=== PATIENT | female | born 1995 | race American Indian/Alaskan Native ===

== ENCOUNTER 2017-02-10 04:57 | Emergency (ER) | payer BC ==
--- NOTE | 2017-02-10 07:00 | Emergency Department Report ---
ED Female HPI - General Chief complaint: Urogenital-Female Stated complaint: VAGINAL PAIN Time Seen by Provider: 02/10/17 06:56 Source: patient Mode of arrival: Ambulatory Limitations: No Limitations - History of Present Illness Initial comments: 21-year-old femalesignificant past medical history presents with complaint of tampon lodged in vagina. Menstrual period started on 11/08/16 patient states she inserted a tampon approximately 5-1/2 hours ago and attempted to remove it 2 hours ago and could not find tampon string states she accidentally shoved a deeper into her vagina while in the shower. Patient denies fevers chills abdominal pain other than slight mild cramping. Denies dysuria or hematuria does state that she has some menstrual bleeding occurring at this time. Denies any significant pain, denies any fevers or chills. Fully lucid awake alert and oriented not in acute distress and nontoxic appearing MD Complaint: vaginal bleeding Onset/Timin -: hour(s), During the night Are you Now?: No Last Menstrual Period: 02/08/17 EDC: 11/15/17 Associated Symptoms: vaginal bleeding - Related Data Sexually active: Yes Allergies Allergy/AdvReac Type Severity Reaction Status Date / Time No Known Allergies Allergy Unverified 02/10/17 05:56 ED Review of Systems ROS: Stated complaint: VAGINAL PAIN Other details as noted in HPI Constitutional: denies: chills, fever Eyes: denies: eye pain, eye discharge, vision change ENT: denies: ear pain, throat pain Respiratory: denies: cough, shortness of breath, wheezing Cardiovascular: denies: chest pain, palpitations Endocrine: no symptoms reported Gastrointestinal: denies: abdominal pain, nausea, diarrhea Genitourinary: denies: urgency, dysuria, discharge Musculoskeletal: denies: back pain, joint swelling, arthralgia Skin: denies: rash, lesions Neurological: denies: headache, weakness, paresthesias Psychiatric: denies: anxiety, depression Hematological/Lymphatic: denies: easy bleeding, easy bruising ED Past Medical Hx - Past Medical History Previous Medical History?: No - Surgical History Past Surgical History?: No - Social History Smoking Status: Never Smoker Substance Use Type: Alcohol ED Physical Exam - General Limitations: No Limitations General appearance: alert, in no apparent distress - Head Head exam: Present: atraumatic, normocephalic - Eye Eye exam: Present: normal appearance - ENT ENT exam: Present: mucous membranes moist - Neck Neck exam: Present: normal inspection - Respiratory Respiratory exam: Present: normal lung sounds bilaterally. Absent: respiratory distress - Cardiovascular Cardiovascular Exam: Present: regular rate, normal rhythm. Absent: systolic murmur, diastolic murmur, rubs, gallop - GI/Abdominal GI/Abdominal exam: Present: soft, normal bowel sounds - External exam: Present: normal external exam Speculum exam: Present: vaginal discharge, foreign body (tampon lodged in fornix adjacent to cervix ) - Extremities Exam Extremities exam: Present: normal inspection - Back Exam Back exam: Present: normal inspection - Neurological Exam Neurological exam: Present: alert, oriented X3, CN II-XII intact, normal gait - Psychiatric Psychiatric exam: Present: normal affect, normal mood - Skin Skin exam: Present: warm, dry, intact, normal color. Absent: rash ED Course Vital Signs 02/10/17 05:56 Temperature 98.4 F Pulse Rate 107 H Respiratory 18 Rate Blood Pressure 112/77 O2 Sat by Pulse 98 Oximetry ED Medical Decision Making - Medical Decision Making A/P: Vaginal foreign body removal, tampon removal 1-tampon fully removed from the vaginal vault. No evidence of vaginal laceration, scant amount of vaginal bleeding 2-I advised patient to use sanitary napkin/pads for now during menstrual cycle 3-I advised patient that if she develops fevers chills abdominal pain any abnormal rash or any bowel vaginal discharge or purulence from vagina or foul discharge from vagina to return to the ED immediately for reevaluation. Patient stated she understood these instructions. I explained to patient that the risk of having a tampon in for an extended period of time is pelvic infection and toxic shock syndrome however as patient stated that this scenario only developed in the last few hours it is highly unlikely that the patient has oral developed toxic shock syndrome from having tampon in for less than 5 hours 4-follow-up with [facility] Critical care attestation.: If time is entered above; I have spent that time in minutes in the direct care of this critically ill patient, excluding procedure time. ED Disposition Clinical Impression: Foreign body in vagina Qualifiers: Encounter type: initial encounter Qualified Code(s): T19.2XXA - Foreign body in vulva and vagina, initial encounter Disposition: TO HOME OR SELFCARE Is pt being admited?: No Does the pt Need Aspirin: No Condition: Stable Instructions: Vaginal Foreign Body (ED) Referrals: [facility] [Provider Group] - 3-5 Days [facility] [Provider Group] - 3-5 Days Time of Disposition: 07:01
[2017-02-10 07:29] VITALS: BP 123/68
== END 2017-02-10 07:29 | disposition home or self-care (01) ==
LOC: ED 04:57
DX: T19.2XXA Foreign body in vulva and vagina, initial encounter (principal); X58.XXXA Exposure to other specified factors, initial encounter; Y93.9 Activity, unspecified; Y99.9 Unspecified external cause status; Y92.89 Other specified places as the place of occurrence of the external cause
CPT/HCPCS: 99282

== ENCOUNTER 2017-07-03 08:03 | Emergency (ER) | payer BC ==
[2017-07-03 08:11] VITALS: BP 131/78
--- NOTE | 2017-07-03 08:36 | Emergency Department Report ---
ED Female HPI - General Chief complaint: Urogenital-Female Stated complaint: YEAST INFECTION TX W/ AMOX Time Seen by Provider: 07/03/17 08:26 Source: patient Mode of arrival: Ambulatory Limitations: No Limitations - History of Present Illness Initial comments: This is a 22 y.o. female that presents with white itchy discharge for 1 week. Patient reports going to dentist 2 weeks ago and prescribed amoxicillin for toothache. She took the last dose last week. Reports having thick white discharge, dysuria, suprapubic pain, and vaginal itching for 1 week. States she can't take monistat because she doesn't like discharge for 7 days. Admits to possible exposure to STD. Denies low back pain, suprapubic pressure, frequency, and urgency. MD Complaint: vaginal discharge (thick white), dysuria -: week(s) (1) Location: labia Radiation: non-radiating Severity: moderate Severity scale (0 -10): 5 Quality: burning (with voids) Consistency: intermittent Improves with: bathing Worsens with: urination Are you Now?: No Associated Symptoms: vaginal discharge, dysuria. denies: vaginal bleeding, abdominal pain, nausea/vomiting, fever/chills, headaches, loss of appetite, hematuria, rash, seizure, shortness of breath, syncope, weakness - Related Data Sexually active: Yes Previous Rx's Medication Instructions Recorded Last Taken Type RX: Fluconazole [Diflucan] 150 mg PO ONCE #1 tablet 07/03/17 Unknown Rx metroNIDAZOLE [Metronidazole] 500 mg PO BID 7 Days #14 tablet 07/03/17 Unknown Rx Allergies Allergy/AdvReac Type Severity Reaction Status Date / Time No Known Allergies Allergy Verified 07/03/17 08:09 ED Review of Systems ROS: Stated complaint: YEAST INFECTION TX W/ AMOX Other details as noted in HPI Constitutional: denies: chills, fever Respiratory: denies: cough, shortness of breath, wheezing Cardiovascular: denies: chest pain, palpitations Gastrointestinal: denies: abdominal pain, nausea, vomiting, diarrhea Genitourinary: dysuria, discharge (thick white). denies: urgency, frequency, hematuria, abnormal menses, dyspareunia Musculoskeletal: denies: back pain, joint swelling, arthralgia Neurological: denies: headache, weakness, paresthesias ED Past Medical Hx - Past Medical History Previous Medical History?: No - Surgical History Past Surgical History?: No - Social History Smoking Status: Never Smoker Substance Use Type: None - Medications Home Medications: Home Medications Medication Instructions Recorded Confirmed Last Taken Type RX: Fluconazole [Diflucan] 150 mg PO ONCE #1 tablet 07/03/17 Unknown Rx metroNIDAZOLE [Metronidazole] 500 mg PO BID 7 Days #14 tablet 07/03/17 Unknown Rx ED Physical Exam - General Limitations: No Limitations General appearance: alert, in no apparent distress - Respiratory Respiratory exam: Present: normal lung sounds bilaterally. Absent: respiratory distress - Cardiovascular Cardiovascular Exam: Present: regular rate, normal rhythm, normal heart sounds. Absent: systolic murmur, diastolic murmur, rubs, gallop - GI/Abdominal GI/Abdominal exam: Present: soft, normal bowel sounds. Absent: distended, tenderness, guarding, rebound, rigid, diminished bowel sounds, organomegaly, mass - Back Exam Back exam: Present: normal inspection, full ROM. Absent: CVA tenderness (R), CVA tenderness (L), muscle spasm - Neurological Exam Neurological exam: Present: alert, oriented X3, normal gait - Psychiatric Psychiatric exam: Present: normal affect, normal mood - Skin Skin exam: Present: warm, dry, intact, normal color. Absent: rash ED Course Vital Signs 07/03/17 08:09 Temperature 98.2 F Pulse Rate 98 H Respiratory 16 Rate Blood Pressure 131/78 O2 Sat by Pulse 100 Oximetry ED Medical Decision Making - Medical Decision Making This is a 22 y.o. female presents with vaginal discharge and dysuria for 1 week. Patient was examined by me. Obtained UA and HCG. UA, elevated WBC'S. Discussed results with patient and agreed to be empirically treated for STD's. Given rocephin 250 mg IM, azithromycin 1 gram po once in ER. Discharged home in stable condition. Start metronidazole 500 mg po bid x 7 days and diflucan 150 mg po once. Discussed prevention options. F/U with PCP or Health Department. Critical care attestation.: If time is entered above; I have spent that time in minutes in the direct care of this critically ill patient, excluding procedure time. ED Disposition Clinical Impression: Exposure to STD Disposition: DC-01 TO HOME OR SELFCARE Is pt being admited?: No Does the pt Need Aspirin: No Condition: Stable Instructions: Sexually Transmitted Diseases (ED), Safe Sex (ED) Additional Instructions: Avoid drinking alcohol for 24 hours. Continue safe sexual intercourse. Follow up with Primary Care Provider or health department. Prescriptions: RX: Fluconazole [Diflucan] 150 mg PO ONCE #1 tablet metroNIDAZOLE [Metronidazole] 500 mg PO BID 7 Days #14 tablet Referrals: [facility] [Outside] - 3-5 Days [facility] [Outside] - 3-5 Days [facility] [Outside] - 3-[address] [facility] [Outside] - 3-5 Days Time of Disposition: 10:23 Print Language: KHMER
[2017-07-03 09:17] LABS: HCG Qualitative,Urine Negative (Negative)
[2017-07-03 09:26] LABS: Bacteria,Urine 2+ /HPF (Negative); Bilirubin,Urine NEG (Negative); Blood,Urine SM (Negative); Color,Urine Amber (Yellow); Hyaline Casts,Urine 11 /LPF; Mucus,Urine 3+ /HPF; Urobilinogen,Urine < 2.0 mg/dL (<2.0)
[2017-07-03 09:36] LABS: WBC,Urine > 182.0 /HPF (0.0-6.0)
[2017-07-03] MEDS ORDERED: ROCEPHIN IM ONE (10:24)
[2017-07-03] MEDS ORDERED: ZITHROMAX PO ONE (10:24)
[2017-07-03] MEDS ORDERED: XYLOCAINE 1% MPF 5 mL INFILTRATI ONE (10:24)
== END 2017-07-03 10:55 | disposition home or self-care (01) ==
LOC: ED 08:03
DX: N89.8 Other specified noninflammatory disorders of vagina (principal); R33.0 Drug induced retention of urine; Z20.2 Contact with and (suspected) exposure to infections with a predominantly sexual mode of transmission
CPT/HCPCS: 81001; 81025; 96372; 99283; J0696

== ENCOUNTER 2017-11-12 12:37 | Emergency (ER) | payer BC ==
[2017-11-12 12:57] VITALS: BP 121/76
== END 2017-11-12 14:32 ==
LOC: ED 12:37
DX: K08.89 Other specified disorders of teeth and supporting structures (principal); Z53.21 Procedure and treatment not carried out due to patient leaving prior to being seen by health care provider